=== PATIENT | female | born 1975 | race Caucasian/White ===

== ENCOUNTER 2023-06-28 09:51 | Emergency (ER) | payer BC ==
[~2023-06-28] VITALS: Ht 167.6 cm; Wt 65.8 kg
[2023-06-28 09:52] VITALS: BP_SYST 128; PULSE 85; RESP 18; TEMP 98.2; O2SAT 98
[2023-06-28] MEDS ORDERED: ONDANSETRON HCL 4 MG/2 ML VIAL IVP ONE (10:45)
[2023-06-28] MEDS ORDERED: NACL 0.9% 2,000 ML IV ONE (10:45)
[2023-06-28] MEDS ORDERED: MORPHINE 4 MG INJ. 4 MG/ML VIAL IVP ONE ×2 (10:45→12:30)
[2023-06-28 10:48] LABS: BASOPHILS % (AUTO) 0.2 % (0.0-2.0); EOSINOPHILS % (AUTO) 0.2 % (0.0-4.0); HEMATOCRIT 39.5 % (36-48); HEMOGLOBIN 13.2 g/dL (12.0-16.0); LYMPHOCYTES # (AUTO) 0.5 K/uL (1.0-5.5); LYMPHOCYTES % (AUTO) 6.9 % (20.5-51.5); MEAN CORPUSCULAR HEMOGLOBIN 31 pg (27-31); MEAN CORPUSCULAR HGB CONC 33 % (32-36); MEAN CORPUSCULAR VOLUME 92 fL (79.0-98.0); MONOCYTES # (AUTO) 0.5 K/uL (0.0-1.0); MONOCYTES % (AUTO) 7.2 % (1.7-9.3); NEUTROPHILS # (AUTO) 5.7 K/uL (1.8-7.7); NEUTROPHILS % (AUTO) 85.5 % (40.0-70.0); PLATELET COUNT (AUTO) 224 K/uL (130-430); RED BLOOD CELL COUNT(AUTO) 4.29 MIL/uL (4.2-6.2); RED CELL DISTRIBUTION WIDTH 13.4 % (9.0-15.0); WHITE BLOOD COUNT (AUTO) 6.6 K/uL (4.8-10.8)
[2023-06-28 10:50] LABS: BILIRUBIN,URINE 1+ (NEGATIVE); BLOOD, URINE 2+ (NEGATIVE); CLARITY/URINE CLEAR (CLEAR); COLOR,URINE YELLOW (YELLOW); GLUCOSE,URINE NEGATIVE (NEGATIVE); KETONES,URINE 3+ (NEGATIVE); LEUKOCYTE ESTERASE ,URINE NEGATIVE (NEGATIVE); NITRITE, URINE NEGATIVE (NEGATIVE); PH,URINE 6.5 (5.0-8.0); PROTEIN URINE 2+ (NEGATIVE); UROBILINOGEN,URINE 0.2 (0.2-1.0)
[2023-06-28 11:07] LABS: BACTERIA,URINE MODERATE /HPF (None Seen); MUCUS,URINE 1+ /LPF (None Seen)
[2023-06-28 11:15] LABS: ALBUMIN 3.2 g/dL (3.4-4.8); BILIRUBIN,DIRECT 0.1 mg/dL (0.0-0.3); CALCIUM 8.7 mg/dL (8.4-11.0); CREATININE 0.71 mg/dL (0.55-1.30); TOTAL BILIRUBIN 0.4 mg/dL (0.0-1.0); TOTAL PROTEIN, SERUM 7.5 g/dL (6.4-8.3)
[2023-06-28 11:17] LABS: POTASSIUM 2.8 mmol/L (3.5-5.1)
[2023-06-28] MEDS ORDERED: KCL 20 mEq in 100 mL (PREMIX) 100 ML IV ONE (11:30)
[2023-06-28] MEDS ORDERED: POTASSIUM CHLORIDE 20 MEQ TAB.PRT.SR PO ONE (11:30)
[2023-06-28] MEDS ORDERED: POTA-197 PO (13:34)
[2023-06-28] MEDS ORDERED: METR-154 PO (13:34)
[2023-06-28] MEDS ORDERED: CIPR500T5 PO (13:34)
[2023-06-28] MEDS ORDERED: HYDR-3917 PO (13:34)
[2023-06-28] MEDS ORDERED: ONDA-8 TL (13:34)
[2023-06-28 14:32] VITALS: BP_SYST 128; PULSE 85; RESP 18; TEMP 98.2; O2SAT 98
== END 2023-06-28 14:28 | disposition home or self-care (01) ==
LOC: SED 09:51
DX: K52.9 Noninfective gastroenteritis and colitis, unspecified (principal); E87.6 Hypokalemia; E87.1 Hypo-osmolality and hyponatremia; R11.0 Nausea; R79.89 Other specified abnormal findings of blood chemistry; Z79.899 Other long term (current) drug therapy
CPT/HCPCS: 99291; 74177; 96365; 96375; 96361; 80076; 80048; 81001; 83690; 83735; 85025; 87040; 87086; 36415; 76376; 96376; 83605; 81000; 81015; J2405; J3480; J2270; Q9967; J7030